=== PATIENT | female | born 1990 | race Caucasian/White ===

== ENCOUNTER 2020-01-07 10:37 | Emergency (ER) | payer MEDICAID ==
[~2020-01-07] VITALS: Ht 175.3 cm; Wt 59.0 kg
--- NOTE | 2020-01-07 10:45 | NUR ---
CAME IN FOR COUGH, FEVER, DIARRHEA SINCE 12/25. TAKING OTC MEDS W/ NO RELIEF, TESTED NEGATIVE FOR COVID19 12/31/19, TO ER BED 8, HOOKED TO MONITOR, CHANGED TO HOSP GOWN, WARM BLANKET PROVIDED, PATIENT AAO x 4, BREATHING EVEN AND UNLABORED. DR OTERO AT BEDSIDE FOR EVAL.
--- NOTE | 2020-01-07 11:34 | NUR ---
CORONAVIRUS SWAB AND RAPID STREP DONE. SENT TO LAB
[2020-01-07 12:23] VITALS: BP 116/71
--- NOTE | 2020-01-07 12:23 | NUR ---
Patient discharged to home in stable condition. Written and verbal after care instructions given. Patient verbalizes understanding of instruction.
== END 2020-01-07 12:24 | disposition home or self-care (01) ==
LOC: ER 10:37
DX: J06.9 Acute upper respiratory infection, unspecified (principal); Z20.828 Contact with and (suspected) exposure to other viral communicable diseases; I25.2 Old myocardial infarction
CPT/HCPCS: 71045; 87070; 87880; 93005; 99284; C9803; U0003; 86403-TC